=== PATIENT | female | born 1950 | race Caucasian/White ===

== ENCOUNTER 2017-10-21 08:13 | Inpatient (IN) | payer OTHER ==
[2017-10-21] MEDS: SOD CHLORIDE 0.9% 1,000 ML IV ×4 (09:21→16:29)
[2017-10-21 10:15] LABS: ABNORMAL IP MESSAGE 1; HEMATOCRIT 31.9 % (37.0-47.0); HEMOGLOBIN 9.4 g/dl (12.0-16.0); MEAN CORPUSCULAR HEMOGLOBIN 30.2 pg (29.0-33.0); MEAN CORPUSCULAR HGB CONC 29.5 g/dl (32.0-37.0); MEAN CORPUSCULAR VOLUME 102.6 fl (82.0-101.0); PLATELET COUNT 440 10^3/UL (140-415); RED BLOOD COUNT 3.11 10^6/ul (4.20-5.40); RED CELL DISTRIBUTION WIDTH 16.1 % (11.5-14.5)
[2017-10-21 10:27] LABS: POSITIVE DIFF @See below
[2017-10-21 10:28] LABS: ADD MAN DIFF? YES; BLOOD UREA NITROGEN 30 mg/dl (7-20); CALCIUM 9.7 mg/dl (8.4-10.2); CHLORIDE 100 mmol/L (97-110); CREATININE 1.19 mg/dl (0.44-1.00); SODIUM 138 mmol/L (135-144)
[2017-10-21 10:38] LABS: GLUCOSE 867 mg/dl (70-220)
[2017-10-21 10:39] LABS: LACTIC ACID 5.5 mmol/L (0.5-2.0)
[2017-10-21 10:39] LABS: ANION GAP 40 (8-16); CARBON DIOXIDE < 5 mmol/L (21-31)
[2017-10-21] MEDS: INSULIN HUMAN REGULAR 100 UNIT in SOD CHLORIDE 0.9% 99 ML IV (10:51)
[2017-10-21 12:13] LABS: ANISOCYTOSIS 1+ (0-0); BAND NEUTROPHILS % (M) 4 % (0-4); BURR CELLS 1+ (0-0); LYMPHOCYTES #M 3.3 10^3/ul (0.8-2.9); LYMPHOCYTES % (M) 13 % (15-51); MONOCYTE #M 1.8 10^3/ul (0.3-0.9); MONOCYTES % (M) 7 % (0-11); PLATELET ESTIMATE INCREASED; POIKILOCYTOSIS 2+ (0-0); POLYCHROMASIA 1+ (0-0); SEGMENTED NEUTROPHILS (M) % 76 % (39-77); SMUDGE%M 6 % (0-0)
[2017-10-21] MEDS: DEXTROSE 5%-0.45% NACL 1,000 ML IV (12:22)
[2017-10-21] MEDS ORDERED: INSULIN HUMAN REGULAR 100 UNIT in SOD CHLORIDE 0.9% 99 ML IV (12:30)
[2017-10-21] MEDS ORDERED: ONDANSETRON 4 MG INJ IV (12:30)
[2017-10-21 13:26] LABS: ALANINE AMINOTRANSFERASE 69 IU/L (13-69); ALBUMIN 4.3 g/dl (3.3-4.9); ALKALINE PHOSPHATASE 152 IU/L (42-121); ASPARTATE AMINO TRANSFERASE 41 IU/L (15-46); TOTAL PROTEIN 6.7 g/dl (6.1-8.1)
[2017-10-21 13:27] LABS: HEMOGLOBIN A1C 9.9 % (0-5.9)
[2017-10-21] MEDS: ACCU-CHEK XX ×12 (13:30→23:30)
[2017-10-21 13:44] LABS: BLOOD UREA NITROGEN 32 mg/dl (7-20); CALCIUM 9.8 mg/dl (8.4-10.2); CHLORIDE 106 mmol/L (97-110); CREATININE 1.25 mg/dl (0.44-1.00); SODIUM 146 mmol/L (135-144)
[2017-10-21 13:51] LABS: ANION GAP 42 (8-16)
[2017-10-21 13:56] LABS: LACTIC ACID 7.6 mmol/L (0.5-2.0)
[2017-10-21 13:56] LABS: CARBON DIOXIDE < 5 mmol/L (21-31); GLUCOSE 881 mg/dl (70-220); POTASSIUM 6.9 mmol/L (3.5-5.1)
[2017-10-21] MEDS: NA POLYST SULFON 15 GM/60 ML BTL PO (13:59)
[2017-10-21] MEDS: NA BICARBONATE 8.4% 50 ML SYG IV (13:59)
[2017-10-21 15:34] LABS: PHOSPHORUS 8.3 mg/dl (2.5-4.9)
[2017-10-21 15:34] LABS: MAGNESIUM 2.6 mg/dl (1.7-2.5)
[2017-10-21 15:39] LABS: LACTIC ACID 8.1 mmol/L (0.5-2.0)
[2017-10-21 15:51] LABS: GLUCOSE 799 mg/dl (70-220)
[2017-10-21] MEDS: LACTATED RINGER'S 1,000 ML IV (16:21)
[2017-10-21] MEDS: ALBUTEROL 0.5% (NEB) 2.5 MG/0.5 ML AMP INH (16:52)
[2017-10-21 17:04] LABS: ANION GAP 37 (8-16); BLOOD UREA NITROGEN 31 mg/dl (7-20); CALCIUM 8.8 mg/dl (8.4-10.2); CHLORIDE 111 mmol/L (97-110); POTASSIUM 5.5 mmol/L (3.5-5.1); SODIUM 148 mmol/L (135-144)
[2017-10-21 17:12] LABS: CARBON DIOXIDE 6 mmol/L (21-31); GLUCOSE 598 mg/dl (70-220)
[2017-10-21] MEDS: AZITHROMYCIN 500MG/NS (PMX) 250 ML IVPB (17:30)
[2017-10-21 17:54] LABS: ADD UMIC NO; UR ASCORBIC ACID NEGATIVE (NEGATIVE); UR BACTERIA FEW /HPF (NONE SEEN); UR BILIRUBIN (Dip) NEGATIVE (NEGATIVE); UR BLOOD (Dip) NEGATIVE (NEGATIVE); UR CLARITY SLIGHTLY CLOUDY (CLEAR); UR COLOR YELLOW (YELLOW); UR GLUCOSE (Dip) 3+ mg/dL (NEGATIVE); UR KETONES (Dip) 2+ mg/dL (NEGATIVE); UR LEUKOCYTE ESTERASE (Dip) NEGATIVE Leu/ul (NEGATIVE); UR NITRITE (Dip) NEGATIVE (NEGATIVE); UR RBC 0 /HPF (0-5); UR SPECIFIC GRAVITY (Dip) 1.018 (1.003-1.030); UR TOTAL PROTEIN (Dip) NEGATIVE (NEGATIVE); UR UROBILINOGEN (Dip) NEGATIVE (NEGATIVE); UR WBC 1 /HPF (0-5)
[2017-10-21] MEDS: CEFTRIAXONE 1 GM/50 ML (PMX) 50 ML IVPB (18:50)
[2017-10-21] MEDS: DOCUSATE SODIUM 100 MG CAP PO (21:00)
[2017-10-21 21:34] LABS: ANION GAP 29 (8-16); BLOOD UREA NITROGEN 29 mg/dl (7-20); CALCIUM 8.4 mg/dl (8.4-10.2); CHLORIDE 117 mmol/L (97-110); GLUCOSE 330 mg/dl (70-220); POTASSIUM 3.8 mmol/L (3.5-5.1); SODIUM 151 mmol/L (135-144)
[2017-10-21 21:40] LABS: CARBON DIOXIDE 9 mmol/L (21-31)
[2017-10-22] MEDS: ACCU-CHEK XX ×21 (00:30→20:30)
[2017-10-22] MEDS: DEXTROSE 50% 50 ML SYRINGE IV (03:25)
[2017-10-22 04:34] LABS: ANION GAP 17 (8-16); BLOOD UREA NITROGEN 30 mg/dl (7-20); CALCIUM 8.5 mg/dl (8.4-10.2); CARBON DIOXIDE 18 mmol/L (21-31); CHLORIDE 124 mmol/L (97-110); CREATININE 0.99 mg/dl (0.44-1.00); GLUCOSE 119 mg/dl (70-220); POTASSIUM 3.6 mmol/L (3.5-5.1); SODIUM 155 mmol/L (135-144)
[2017-10-22] MEDS: DOCUSATE SODIUM 100 MG CAP PO ×2 (09:00→20:56)
[2017-10-22] MEDS: FAMOTIDINE 20 MG INJ IV ×3 (09:00→21:12)
[2017-10-22 10:21] LABS: ANION GAP 14 (8-16); BLOOD UREA NITROGEN 28 mg/dl (7-20); CALCIUM 8.4 mg/dl (8.4-10.2); CARBON DIOXIDE 21 mmol/L (21-31); CHLORIDE 123 mmol/L (97-110); CREATININE 0.99 mg/dl (0.44-1.00); GLUCOSE 130 mg/dl (70-220); POTASSIUM 3.9 mmol/L (3.5-5.1); SODIUM 154 mmol/L (135-144)
[2017-10-22] MEDS: INSULIN GLARGINE [LANtus] 3 ML PEN SC (12:03)
[2017-10-22] MEDS ORDERED: SOD CHLORIDE 0.45% 1,000 ML IV (14:30)
[2017-10-22 14:46] LABS: ADD MAN DIFF? NO
[2017-10-22 14:53] LABS: ABNORMAL IP MESSAGE 1; HEMATOCRIT 24.6 % (37.0-47.0); HEMOGLOBIN 8.1 g/dl (12.0-16.0); MEAN CORPUSCULAR HEMOGLOBIN 30.8 pg (29.0-33.0); MEAN CORPUSCULAR HGB CONC 32.9 g/dl (32.0-37.0); MEAN CORPUSCULAR VOLUME 93.5 fl (82.0-101.0); MEAN PLATELET VOLUME 9.9 fl (7.4-10.4); PLATELET COUNT 288 10^3/UL (140-415); RED BLOOD COUNT 2.63 10^6/ul (4.20-5.40); RED CELL DISTRIBUTION WIDTH 16.4 % (11.5-14.5)
[2017-10-22 15:02] LABS: POSITIVE DIFF @See below
[2017-10-22 15:02] LABS: WHITE BLOOD COUNT 31.6 10^3/ul (4.8-10.8)
[2017-10-22 15:07] LABS: LACTIC ACID 1.9 mmol/L (0.5-2.0)
[2017-10-22 15:12] LABS: ANION GAP 18 (8-16); BLOOD UREA NITROGEN 27 mg/dl (7-20); CALCIUM 8.7 mg/dl (8.4-10.2); CARBON DIOXIDE 18 mmol/L (21-31); CHLORIDE 122 mmol/L (97-110); CREATININE 0.96 mg/dl (0.44-1.00); GLUCOSE 158 mg/dl (70-220); POTASSIUM 3.8 mmol/L (3.5-5.1); SODIUM 154 mmol/L (135-144)
[2017-10-22] MEDS: DEXTROSE 5%-0.45% NACL 1,000 ML IV (15:29)
[2017-10-22] MEDS: LORAZEPAM 2 MG INJ IV (15:29)
[2017-10-22] MEDS ORDERED: VANCOMYCIN IV PER PHARMACY XX (15:30)
[2017-10-22 15:43] LABS: BAND NEUTROPHILS #M 0.6 10^3/ul (0.0-0.6); BAND NEUTROPHILS % (M) 2 % (0-4); EOSINOPHILS % (M) 1 % (0-7); HYPOCHROMASIA 1+ (0-0); LYMPHOCYTES #M 1.5 10^3/ul (0.8-2.9); LYMPHOCYTES % (M) 5 % (15-51); MONOCYTE #M 0.6 10^3/ul (0.3-0.9); MONOCYTES % (M) 2 % (0-11); PLATELET ESTIMATE NORMAL; SEG NEUT #M 28.6 10^3/ul (1.7-7.5); SEGMENTED NEUTROPHILS (M) % 90 % (39-77)
[2017-10-22] MEDS: PIPER-TAZO 3.375 GM IV (PMX) 50 ML IV (16:26)
[2017-10-22] MEDS: VANCOMYCIN 1 GM 250 ML IVPB (16:26)
[2017-10-22] MEDS: INSULIN ASPART [NOVOLOG] 3 ML PEN SC ×2 (18:00→20:18)
[2017-10-22] MEDS ORDERED: INSULIN ASPART [NOVOLOG] 3 ML PEN SC (18:00)
[2017-10-22 19:06] LABS: ADD UMIC YES; UR ASCORBIC ACID NEGATIVE (NEGATIVE); UR BACTERIA FEW /HPF (NONE SEEN); UR BILIRUBIN (Dip) NEGATIVE (NEGATIVE); UR BLOOD (Dip) NEGATIVE (NEGATIVE); UR CLARITY SLIGHTLY CLOUDY (CLEAR); UR COLOR YELLOW (YELLOW); UR GLUCOSE (Dip) 3+ mg/dL (NEGATIVE); UR KETONES (Dip) 2+ mg/dL (NEGATIVE); UR LEUKOCYTE ESTERASE (Dip) NEGATIVE Leu/ul (NEGATIVE); UR NITRITE (Dip) NEGATIVE (NEGATIVE); UR RBC 0 /HPF (0-5); UR SPECIFIC GRAVITY (Dip) 1.018 (1.003-1.030); UR TOTAL PROTEIN (Dip) 1+ mg/dl (NEGATIVE); UR UROBILINOGEN (Dip) NEGATIVE (NEGATIVE); UR WBC 1 /HPF (0-5)
[2017-10-22 19:25] LABS: ANION GAP 13 (8-16); BLOOD UREA NITROGEN 26 mg/dl (7-20); CALCIUM 8.1 mg/dl (8.4-10.2); CARBON DIOXIDE 19 mmol/L (21-31); CHLORIDE 124 mmol/L (97-110); CREATININE 0.93 mg/dl (0.44-1.00); GLUCOSE 137 mg/dl (70-220); POTASSIUM 3.7 mmol/L (3.5-5.1); SODIUM 152 mmol/L (135-144)
[2017-10-22 19:33] LABS: CREATININE,URINE RANDOM 86.37 mg/dl (20-320)
[2017-10-22 19:33] LABS: SODIUM,URINE RANDOM 49 mmol/L (30-90)
[2017-10-22 20:12] LABS: OSMOLALITY,URINE 596 mOsm/kg (250-1200)
[2017-10-22] MEDS: DEXTROSE 5% 1,000 ML IV (21:13)
[2017-10-22 23:10] LABS: ANION GAP 14 (8-16); BLOOD UREA NITROGEN 25 mg/dl (7-20); CALCIUM 8.3 mg/dl (8.4-10.2); CARBON DIOXIDE 20 mmol/L (21-31); CHLORIDE 123 mmol/L (97-110); CREATININE 1.12 mg/dl (0.44-1.00); GLUCOSE 134 mg/dl (70-220); POTASSIUM 3.8 mmol/L (3.5-5.1); SODIUM 153 mmol/L (135-144)
[2017-10-22] MEDS: PIPER-TAZO 3.375 GM IV (PMX) 50 ML IVPB (23:40)
[2017-10-23] MEDS: INSULIN ASPART [NOVOLOG] 3 ML PEN SC ×6 (01:00→20:35)
[2017-10-23] MEDS: ACCU-CHEK XX ×7 (01:53→20:35)
[2017-10-23] MEDS ORDERED: ACCU-CHEK XX ×2 (02:00)
[2017-10-23] MEDS: PIPER-TAZO 3.375 GM IV (PMX) 50 ML IVPB ×3 (05:40→17:35)
[2017-10-23] MEDS: VANCOMYCIN 500MG/NS (PMX) 100 ML IVPB ×2 (05:41→19:27)
[2017-10-23 06:54] LABS: ADD MAN DIFF? NO
[2017-10-23 07:02] LABS: BASOPHIL # 0.1 10^3/ul (0.0-0.1); BASOPHILS % 0.4 % (0.0-2.0); EOSINOPHILS # 0.1 10^3/ul (0.0-0.5); EOSINOPHILS % 0.4 % (0.0-7.0); HEMATOCRIT 25.2 % (37.0-47.0); HEMOGLOBIN 8.2 g/dl (12.0-16.0); LYMPHOCYTES # 2.5 10^3/ul (0.8-2.9); LYMPHOCYTES % 11.4 % (15.0-51.0); MEAN CORPUSCULAR HEMOGLOBIN 30.5 pg (29.0-33.0); MEAN CORPUSCULAR HGB CONC 32.5 g/dl (32.0-37.0); MEAN CORPUSCULAR VOLUME 93.7 fl (82.0-101.0); MEAN PLATELET VOLUME 10.1 fl (7.4-10.4); MONOCYTE # 1.3 10^3/ul (0.3-0.9); MONOCYTES % 5.9 % (0.0-11.0); NEUTROPHIL # 17.4 10^3/ul (1.6-7.5); NEUTROPHILS % 80.9 % (39.0-77.0); PLATELET COUNT 236 10^3/UL (140-415); RED BLOOD COUNT 2.69 10^6/ul (4.20-5.40); RED CELL DISTRIBUTION WIDTH 16.9 % (11.5-14.5)
[2017-10-23 07:02] LABS: WHITE BLOOD COUNT 21.5 10^3/ul (4.8-10.8)
[2017-10-23 07:42] LABS: ANION GAP 14 (8-16); BLOOD UREA NITROGEN 25 mg/dl (7-20); CALCIUM 7.9 mg/dl (8.4-10.2); CARBON DIOXIDE 18 mmol/L (21-31); CHLORIDE 123 mmol/L (97-110); CREATININE 1.48 mg/dl (0.44-1.00); GLUCOSE 110 mg/dl (70-220); MAGNESIUM 2.1 mg/dl (1.7-2.5); POTASSIUM 3.6 mmol/L (3.5-5.1); SODIUM 151 mmol/L (135-144)
[2017-10-23] MEDS: IODIXANOL LOCM 100 ML BTL (07:46)
[2017-10-23] MEDS: SOD CHLORIDE 0.9% 100 ML (07:46)
[2017-10-23] MEDS: DOCUSATE SODIUM 100 MG CAP PO ×2 (09:00→20:31)
[2017-10-23] MEDS: DEXTROSE 5% 1,000 ML IV ×2 (09:18→20:31)
[2017-10-23] MEDS: INSULIN GLARGINE [LANtus] 3 ML PEN SC (09:18)
[2017-10-23] MEDS: FAMOTIDINE 20 MG INJ IV ×2 (09:18→20:31)
[2017-10-23] MEDS: LACTATED RINGER'S 500 ML IV (11:28)
[2017-10-23] MEDS: SODIUM CHLORIDE 0.45% 500 ML BAG IV* (12:40)
[2017-10-23 13:30] LABS: FREE T4 (FREE THYROXINE) 1.08 ng/dl (0.78-2.44)
[2017-10-23 14:03] LABS: HEPATITIS C VIRAL ANTIBODY NEGATIVE (NEGATIVE)
[2017-10-23] MEDS: LORAZEPAM 2 MG INJ IV (15:03)
[2017-10-23 18:36] LABS: VANCOMYCIN,TROUGH 15.3 ug/ml (10.0-20.0)
[2017-10-23 18:37] LABS: RAPID PLASMA REAGIN NONREACTIVE (NR)
[2017-10-24] MEDS: PIPER-TAZO 3.375 GM IV (PMX) 50 ML IVPB ×4 (00:45→21:28)
[2017-10-24] MEDS: DEXTROSE 50% 50 ML SYRINGE IV (00:45)
[2017-10-24] MEDS: INSULIN ASPART [NOVOLOG] 3 ML PEN SC ×6 (00:46→21:36)
[2017-10-24] MEDS: ACCU-CHEK XX ×7 (00:46→21:51)
[2017-10-24] MEDS: VANCOMYCIN 500MG/NS (PMX) 100 ML IVPB (05:46)
[2017-10-24 07:51] LABS: ADD MAN DIFF? NO
[2017-10-24 07:57] LABS: BASOPHIL # 0.1 10^3/ul (0.0-0.1); BASOPHILS % 0.6 % (0.0-2.0); EOSINOPHILS # 0.1 10^3/ul (0.0-0.5); HEMATOCRIT 26.1 % (37.0-47.0); HEMOGLOBIN 8.2 g/dl (12.0-16.0); LYMPHOCYTES # 2.9 10^3/ul (0.8-2.9); LYMPHOCYTES % 23.2 % (15.0-51.0); MEAN CORPUSCULAR HEMOGLOBIN 29.8 pg (29.0-33.0); MEAN CORPUSCULAR HGB CONC 31.4 g/dl (32.0-37.0); MEAN CORPUSCULAR VOLUME 94.9 fl (82.0-101.0); MEAN PLATELET VOLUME 10.2 fl (7.4-10.4); MONOCYTE # 0.7 10^3/ul (0.3-0.9); MONOCYTES % 5.9 % (0.0-11.0); NEUTROPHIL # 8.7 10^3/ul (1.6-7.5); NEUTROPHILS % 68.8 % (39.0-77.0); PLATELET COUNT 196 10^3/UL (140-415); RED BLOOD COUNT 2.75 10^6/ul (4.20-5.40); RED CELL DISTRIBUTION WIDTH 16.9 % (11.5-14.5)
[2017-10-24 07:57] LABS: WHITE BLOOD COUNT 12.6 10^3/ul (4.8-10.8)
[2017-10-24] MEDS: INSULIN GLARGINE [LANtus] 3 ML PEN SC (08:00)
[2017-10-24] MEDS: DOCUSATE SODIUM 100 MG CAP PO ×2 (08:25→21:00)
[2017-10-24] MEDS: FAMOTIDINE 20 MG INJ IV ×2 (08:25→21:27)
[2017-10-24] MEDS: AMLODIPINE 10 MG TAB PO (08:26)
[2017-10-24 08:29] LABS: ANION GAP 13 (8-16); BLOOD UREA NITROGEN 24 mg/dl (7-20); CALCIUM 7.8 mg/dl (8.4-10.2); CARBON DIOXIDE 19 mmol/L (21-31); CHLORIDE 119 mmol/L (97-110); CREATININE 2.07 mg/dl (0.44-1.00); GLUCOSE 69 mg/dl (70-220); POTASSIUM 3.2 mmol/L (3.5-5.1); SODIUM 148 mmol/L (135-144)
[2017-10-24] MEDS ORDERED: PIPER-TAZO 3.375 GM IV (PMX) 50 ML (12:41)
[2017-10-24] MEDS: SOD CHLORIDE 0.45% 1,000 ML IV ×2 (12:43→20:30)
[2017-10-24] MEDS: NA PHOSPHATE/BIPHOS 133 ML ENEMA PR (13:00)
[2017-10-24] MEDS ORDERED: POTASSIUM CHLORIDE 50 ML IVPB (13:00)
[2017-10-24] MEDS: POTASSIUM CHLORIDE 50 ML IVPB ×2 (13:30→14:30)
[2017-10-24] MEDS: hydrALAzine 20 MG INJ IV (16:02)
[2017-10-24] MEDS: HALOPERIDOL 5 MG INJ IV ×2 (17:22→18:50)
[2017-10-24] MEDS ORDERED: HALOPERIDOL 5 MG INJ IV (18:30)
[2017-10-25] MEDS: ACCU-CHEK XX ×7 (01:24→20:38)
[2017-10-25] MEDS: INSULIN ASPART [NOVOLOG] 3 ML PEN SC ×6 (01:27→20:35)
[2017-10-25] MEDS: SOD CHLORIDE 0.45% 1,000 ML IV ×4 (04:30→23:20)
[2017-10-25] MEDS: PIPER-TAZO 3.375 GM IV (PMX) 50 ML IVPB ×3 (05:43→21:48)
[2017-10-25 07:27] LABS: ADD MAN DIFF? NO
[2017-10-25 07:28] LABS: BASOPHIL # 0.1 10^3/ul (0.0-0.1); BASOPHILS % 0.8 % (0.0-2.0); EOSINOPHILS # 0.1 10^3/ul (0.0-0.5); EOSINOPHILS % 1.1 % (0.0-7.0); HEMATOCRIT 24.5 % (37.0-47.0); HEMOGLOBIN 8.2 g/dl (12.0-16.0); LYMPHOCYTES # 1.8 10^3/ul (0.8-2.9); LYMPHOCYTES % 18.1 % (15.0-51.0); MEAN CORPUSCULAR HEMOGLOBIN 31.1 pg (29.0-33.0); MEAN CORPUSCULAR HGB CONC 33.5 g/dl (32.0-37.0); MEAN CORPUSCULAR VOLUME 92.8 fl (82.0-101.0); MEAN PLATELET VOLUME 10.4 fl (7.4-10.4); MONOCYTE # 0.6 10^3/ul (0.3-0.9); MONOCYTES % 5.7 % (0.0-11.0); NEUTROPHIL # 7.1 10^3/ul (1.6-7.5); NEUTROPHILS % 73.7 % (39.0-77.0); PLATELET COUNT 171 10^3/UL (140-415); RED BLOOD COUNT 2.64 10^6/ul (4.20-5.40); RED CELL DISTRIBUTION WIDTH 16.2 % (11.5-14.5)
[2017-10-25 07:28] LABS: WHITE BLOOD COUNT 9.7 10^3/ul (4.8-10.8)
[2017-10-25 08:03] LABS: ANION GAP 14 (8-16); BLOOD UREA NITROGEN 20 mg/dl (7-20); CARBON DIOXIDE 16 mmol/L (21-31); CHLORIDE 120 mmol/L (97-110); CREATININE 1.72 mg/dl (0.44-1.00); GLUCOSE 137 mg/dl (70-220); POTASSIUM 3.4 mmol/L (3.5-5.1); SODIUM 147 mmol/L (135-144)
[2017-10-25] MEDS: INSULIN GLARGINE [LANtus] 3 ML PEN SC (08:25)
[2017-10-25] MEDS: DOCUSATE SODIUM 100 MG CAP PO ×2 (08:31→20:33)
[2017-10-25] MEDS: VANCOMYCIN 500MG/NS (PMX) 100 ML IVPB (08:32)
[2017-10-25] MEDS: AMLODIPINE 10 MG TAB PO (08:32)
[2017-10-25] MEDS: INFLUENZA VIRUS VACCINE 0.5 ML (DISPENSING) IM* (08:33)
[2017-10-25] MEDS: FAMOTIDINE 20 MG INJ IV ×2 (08:34→20:32)
[2017-10-25] MEDS ORDERED: POTASSIUM CHLORIDE (SR) 20 MEQ TAB PO (09:21)
[2017-10-25] MEDS: POTASSIUM CHLORIDE 50 ML IVPB ×4 (10:32→13:00)
[2017-10-25] MEDS: HALOPERIDOL 5 MG INJ IV ×2 (13:17→23:18)
[2017-10-25 14:56] LABS: CREATININE, RANDOM URINE 99 mg/dL (20-320); MICROALBUMIN 7.6 mg/dL; MICROALBUMIN/CREATININE RATIO 77 (<30)
[2017-10-26] MEDS: INSULIN ASPART [NOVOLOG] 3 ML PEN SC ×6 (00:41→20:35)
[2017-10-26] MEDS: ACCU-CHEK XX ×7 (00:41→20:35)
[2017-10-26] MEDS: SOD CHLORIDE 0.45% 1,000 ML IV ×4 (03:56→20:21)
[2017-10-26] MEDS: HALOPERIDOL 5 MG INJ IV (05:39)
[2017-10-26] MEDS: hydrALAzine 20 MG INJ IV (05:40)
[2017-10-26] MEDS: PIPER-TAZO 3.375 GM IV (PMX) 50 ML IVPB ×3 (05:40→21:30)
[2017-10-26 07:39] LABS: ADD MAN DIFF? NO
[2017-10-26 07:46] LABS: BASOPHIL # 0.1 10^3/ul (0.0-0.1); BASOPHILS % 0.8 % (0.0-2.0); EOSINOPHILS # 0.1 10^3/ul (0.0-0.5); EOSINOPHILS % 0.8 % (0.0-7.0); HEMATOCRIT 24.7 % (37.0-47.0); HEMOGLOBIN 8.2 g/dl (12.0-16.0); LYMPHOCYTES # 2.3 10^3/ul (0.8-2.9); LYMPHOCYTES % 20.5 % (15.0-51.0); MEAN CORPUSCULAR HEMOGLOBIN 29.7 pg (29.0-33.0); MEAN CORPUSCULAR HGB CONC 33.2 g/dl (32.0-37.0); MEAN CORPUSCULAR VOLUME 89.5 fl (82.0-101.0); MEAN PLATELET VOLUME 10.7 fl (7.4-10.4); MONOCYTE # 0.8 10^3/ul (0.3-0.9); MONOCYTES % 7.4 % (0.0-11.0); NEUTROPHIL # 7.7 10^3/ul (1.6-7.5); PLATELET COUNT 172 10^3/UL (140-415); RED BLOOD COUNT 2.76 10^6/ul (4.20-5.40); RED CELL DISTRIBUTION WIDTH 15.9 % (11.5-14.5)
[2017-10-26] MEDS: INSULIN GLARGINE [LANtus] 3 ML PEN SC (08:11)
[2017-10-26 08:26] LABS: ANION GAP 15 (8-16); BLOOD UREA NITROGEN 16 mg/dl (7-20); CALCIUM 8.8 mg/dl (8.4-10.2); CARBON DIOXIDE 16 mmol/L (21-31); CHLORIDE 116 mmol/L (97-110); GLUCOSE 136 mg/dl (70-220); MAGNESIUM 1.6 mg/dl (1.7-2.5); PHOSPHORUS 2.3 mg/dl (2.5-4.9); POTASSIUM 3.5 mmol/L (3.5-5.1); SODIUM 143 mmol/L (135-144)
[2017-10-26] MEDS: FAMOTIDINE 20 MG INJ IV ×2 (09:00→20:17)
[2017-10-26] MEDS: AMLODIPINE 10 MG TAB PO (09:20)
[2017-10-26] MEDS: DOCUSATE SODIUM 100 MG CAP PO ×2 (09:20→20:17)
[2017-10-26] MEDS: VANCOMYCIN 500MG/NS (PMX) 100 ML IVPB (09:25)
[2017-10-26] MEDS: MAGNESIUM SULFATE 2 GM/50 ML 50 ML IVPB (11:13)
[2017-10-26] MEDS: POTASSIUM PHOSPHATE 20 MEQ in SOD CHLORIDE 0.9% 250 ML IVPB (14:50)
[2017-10-26] MEDS: DEXTROSE 50% 50 ML SYRINGE IV (17:26)
[2017-10-27] MEDS: INSULIN ASPART [NOVOLOG] 3 ML PEN SC ×6 (01:48→20:09)
[2017-10-27] MEDS: ACCU-CHEK XX ×7 (01:48→20:10)
[2017-10-27] MEDS: PIPER-TAZO 3.375 GM IV (PMX) 50 ML IVPB ×3 (05:19→21:20)
[2017-10-27] MEDS: FAMOTIDINE 20 MG INJ IV ×2 (09:18→20:02)
[2017-10-27] MEDS: AMLODIPINE 10 MG TAB PO (09:19)
[2017-10-27] MEDS: DOCUSATE SODIUM 100 MG CAP PO ×2 (09:19→20:01)
[2017-10-27] MEDS: INSULIN GLARGINE [LANtus] 3 ML PEN SC (09:22)
[2017-10-28] MEDS: INSULIN ASPART [NOVOLOG] 3 ML PEN SC ×7 (01:05→22:18)
[2017-10-28] MEDS: ACCU-CHEK XX ×7 (01:05→21:00)
[2017-10-28] MEDS: PIPER-TAZO 3.375 GM IV (PMX) 50 ML IVPB (05:26)
[2017-10-28 07:43] LABS: ADD MAN DIFF? NO
[2017-10-28 07:46] LABS: WHITE BLOOD COUNT 8.8 10^3/ul (4.8-10.8)
[2017-10-28 07:46] LABS: BASOPHIL # 0.1 10^3/ul (0.0-0.1); BASOPHILS % 0.9 % (0.0-2.0); EOSINOPHILS # 0.2 10^3/ul (0.0-0.5); EOSINOPHILS % 1.8 % (0.0-7.0); HEMOGLOBIN 8.7 g/dl (12.0-16.0); LYMPHOCYTES # 3.1 10^3/ul (0.8-2.9); LYMPHOCYTES % 34.8 % (15.0-51.0); MEAN CORPUSCULAR HGB CONC 33.5 g/dl (32.0-37.0); MEAN CORPUSCULAR VOLUME 92.5 fl (82.0-101.0); MEAN PLATELET VOLUME 11.1 fl (7.4-10.4); MONOCYTE # 0.8 10^3/ul (0.3-0.9); MONOCYTES % 8.5 % (0.0-11.0); NEUTROPHIL # 4.7 10^3/ul (1.6-7.5); NEUTROPHILS % 53.4 % (39.0-77.0); PLATELET COUNT 216 10^3/UL (140-415); RED BLOOD COUNT 2.81 10^6/ul (4.20-5.40); RED CELL DISTRIBUTION WIDTH 15.8 % (11.5-14.5)
[2017-10-28] MEDS: DOCUSATE SODIUM 100 MG CAP PO ×2 (08:12→21:00)
[2017-10-28] MEDS: AMLODIPINE 10 MG TAB PO (08:13)
[2017-10-28] MEDS: FAMOTIDINE 20 MG INJ IV ×2 (08:13→22:06)
[2017-10-28 08:16] LABS: ANION GAP 11 (8-16); BLOOD UREA NITROGEN 13 mg/dl (7-20); CALCIUM 8.9 mg/dl (8.4-10.2); CARBON DIOXIDE 24 mmol/L (21-31); CHLORIDE 111 mmol/L (97-110); CREATININE 1.12 mg/dl (0.44-1.00); GLUCOSE 159 mg/dl (70-220); MAGNESIUM 1.7 mg/dl (1.7-2.5); PHOSPHORUS 3.4 mg/dl (2.5-4.9); POTASSIUM 3.6 mmol/L (3.5-5.1); SODIUM 142 mmol/L (135-144)
[2017-10-28] MEDS: INSULIN GLARGINE [LANtus] 3 ML PEN SC (08:24)
[2017-10-28] MEDS: HALOPERIDOL 5 MG INJ IV (12:21)
[2017-10-28] MEDS: PIPER-TAZO 3.375 GM IV (PMX) 100 ML IVPB ×2 (15:04→22:16)
[2017-10-28] MEDS: QUETIAPINE 25 MG TAB PO (22:04)
[2017-10-29] MEDS: INSULIN ASPART [NOVOLOG] 3 ML PEN SC ×6 (00:30→21:49)
[2017-10-29] MEDS: ACCU-CHEK XX ×7 (00:32→21:20)
[2017-10-29] MEDS: PIPER-TAZO 3.375 GM IV (PMX) 100 ML IVPB ×3 (05:16→21:21)
[2017-10-29] MEDS: INSULIN GLARGINE [LANtus] 3 ML PEN SC (07:56)
[2017-10-29] MEDS: DOCUSATE SODIUM 100 MG CAP PO ×2 (08:38→21:00)
[2017-10-29] MEDS: FAMOTIDINE 20 MG INJ IV ×2 (08:38→21:20)
[2017-10-29] MEDS: AMLODIPINE 10 MG TAB PO (08:38)
[2017-10-29] MEDS: QUETIAPINE 25 MG TAB PO (21:20)
[2017-10-30] MEDS: INSULIN ASPART [NOVOLOG] 3 ML PEN SC ×6 (01:09→23:14)
[2017-10-30] MEDS: ACCU-CHEK XX ×7 (01:09→21:00)
[2017-10-30] MEDS: PIPER-TAZO 3.375 GM IV (PMX) 100 ML IVPB ×3 (06:15→22:08)
[2017-10-30 07:21] LABS: ADD MAN DIFF? NO
[2017-10-30 07:24] LABS: BASOPHIL # 0.1 10^3/ul (0.0-0.1); BASOPHILS % 0.7 % (0.0-2.0); EOSINOPHILS # 0.2 10^3/ul (0.0-0.5); EOSINOPHILS % 1.5 % (0.0-7.0); HEMATOCRIT 30.2 % (37.0-47.0); HEMOGLOBIN 9.9 g/dl (12.0-16.0); LYMPHOCYTES # 4.6 10^3/ul (0.8-2.9); LYMPHOCYTES % 40.8 % (15.0-51.0); MEAN CORPUSCULAR HEMOGLOBIN 30.3 pg (29.0-33.0); MEAN CORPUSCULAR HGB CONC 32.8 g/dl (32.0-37.0); MEAN CORPUSCULAR VOLUME 92.4 fl (82.0-101.0); MEAN PLATELET VOLUME 10.8 fl (7.4-10.4); MONOCYTES % 8.8 % (0.0-11.0); NEUTROPHIL # 5.3 10^3/ul (1.6-7.5); NEUTROPHILS % 47.7 % (39.0-77.0); PLATELET COUNT 353 10^3/UL (140-415); RED BLOOD COUNT 3.27 10^6/ul (4.20-5.40); RED CELL DISTRIBUTION WIDTH 16.5 % (11.5-14.5)
[2017-10-30 07:24] LABS: WHITE BLOOD COUNT 11.1 10^3/ul (4.8-10.8)
[2017-10-30 07:44] LABS: ALBUMIN 4.2 g/dl (3.3-4.9); ANION GAP 14 (8-16); BLOOD UREA NITROGEN 22 mg/dl (7-20); CALCIUM 9.4 mg/dl (8.4-10.2); CARBON DIOXIDE 28 mmol/L (21-31); CHLORIDE 107 mmol/L (97-110); CREATININE 1.22 mg/dl (0.44-1.00); GLUCOSE 106 mg/dl (70-220); MAGNESIUM 1.7 mg/dl (1.7-2.5); PHOSPHORUS 3.4 mg/dl (2.5-4.9); POTASSIUM 3.8 mmol/L (3.5-5.1); SODIUM 145 mmol/L (135-144)
[2017-10-30] MEDS ORDERED: INSULIN GLARGINE [LANtus] 3 ML PEN SC (08:00)
[2017-10-30] MEDS: INSULIN GLARGINE [LANtus] 3 ML PEN SC (08:01)
[2017-10-30] MEDS: FAMOTIDINE 20 MG INJ IV ×2 (08:35→22:08)
[2017-10-30] MEDS: DOCUSATE SODIUM 100 MG CAP PO ×2 (08:35→22:08)
[2017-10-30] MEDS: AMLODIPINE 10 MG TAB PO (08:35)
[2017-10-30] MEDS: QUETIAPINE 25 MG TAB PO (22:08)
[2017-10-31] MEDS: ACCU-CHEK XX ×3 (01:00→02:24)
[2017-10-31 06:14] LABS: ADD MAN DIFF? NO
[2017-10-31 06:16] LABS: BASOPHIL # 0.1 10^3/ul (0.0-0.1); EOSINOPHILS # 0.1 10^3/ul (0.0-0.5); EOSINOPHILS % 1.6 % (0.0-7.0); HEMATOCRIT 25.5 % (37.0-47.0); HEMOGLOBIN 8.3 g/dl (12.0-16.0); LYMPHOCYTES # 3.2 10^3/ul (0.8-2.9); LYMPHOCYTES % 35.5 % (15.0-51.0); MEAN CORPUSCULAR HEMOGLOBIN 30.5 pg (29.0-33.0); MEAN CORPUSCULAR HGB CONC 32.5 g/dl (32.0-37.0); MEAN CORPUSCULAR VOLUME 93.8 fl (82.0-101.0); MEAN PLATELET VOLUME 10.8 fl (7.4-10.4); MONOCYTE # 1.1 10^3/ul (0.3-0.9); NEUTROPHIL # 4.4 10^3/ul (1.6-7.5); NEUTROPHILS % 49.5 % (39.0-77.0); PLATELET COUNT 320 10^3/UL (140-415); RED BLOOD COUNT 2.72 10^6/ul (4.20-5.40); RED CELL DISTRIBUTION WIDTH 16.5 % (11.5-14.5)
[2017-10-31 06:53] LABS: ALBUMIN 3.3 g/dl (3.3-4.9); ANION GAP 13 (8-16); BLOOD UREA NITROGEN 23 mg/dl (7-20); CALCIUM 9.1 mg/dl (8.4-10.2); CARBON DIOXIDE 26 mmol/L (21-31); CHLORIDE 106 mmol/L (97-110); CREATININE 1.26 mg/dl (0.44-1.00); GLUCOSE 267 mg/dl (70-220); MAGNESIUM 1.7 mg/dl (1.7-2.5); PHOSPHORUS 3.3 mg/dl (2.5-4.9); POTASSIUM 4.2 mmol/L (3.5-5.1); SODIUM 141 mmol/L (135-144)
[2017-10-31] MEDS: DOCUSATE SODIUM 100 MG CAP PO ×2 (08:38→20:13)
[2017-10-31] MEDS: ESCITALOPRAM 10 MG TAB PO (08:39)
[2017-10-31] MEDS: AMLODIPINE 10 MG TAB PO (08:39)
[2017-10-31] MEDS: FAMOTIDINE 20 MG INJ IV ×2 (08:39→20:13)
[2017-10-31] MEDS: INSULIN ASPART [NOVOLOG] 3 ML PEN SC ×4 (08:40→20:14)
[2017-10-31] MEDS: INSULIN GLARGINE [LANtus] 3 ML PEN SC (08:50)
[2017-10-31] MEDS: QUETIAPINE 25 MG TAB PO (20:13)
[2017-11-01] MEDS: ACCU-CHEK XX (02:46)
[2017-11-01] MEDS: INSULIN ASPART [NOVOLOG] 3 ML PEN SC ×7 (02:52→21:06)
[2017-11-01 06:12] LABS: WHITE BLOOD COUNT 10.4 10^3/ul (4.8-10.8)
[2017-11-01 06:12] LABS: ADD MAN DIFF? NO; BASOPHIL # 0.1 10^3/ul (0.0-0.1); BASOPHILS % 0.6 % (0.0-2.0); EOSINOPHILS # 0.2 10^3/ul (0.0-0.5); EOSINOPHILS % 1.6 % (0.0-7.0); HEMATOCRIT 25.2 % (37.0-47.0); HEMOGLOBIN 8.4 g/dl (12.0-16.0); LYMPHOCYTES # 4.7 10^3/ul (0.8-2.9); LYMPHOCYTES % 45.3 % (15.0-51.0); MEAN CORPUSCULAR HEMOGLOBIN 30.9 pg (29.0-33.0); MEAN CORPUSCULAR HGB CONC 33.3 g/dl (32.0-37.0); MEAN CORPUSCULAR VOLUME 92.6 fl (82.0-101.0); MEAN PLATELET VOLUME 10.7 fl (7.4-10.4); MONOCYTE # 1.1 10^3/ul (0.3-0.9); MONOCYTES % 10.3 % (0.0-11.0); NEUTROPHIL # 4.3 10^3/ul (1.6-7.5); NEUTROPHILS % 41.7 % (39.0-77.0); PLATELET COUNT 363 10^3/UL (140-415); RED BLOOD COUNT 2.72 10^6/ul (4.20-5.40); RED CELL DISTRIBUTION WIDTH 16.2 % (11.5-14.5)
[2017-11-01 06:58] LABS: ALBUMIN 3.3 g/dl (3.3-4.9); ANION GAP 9 (8-16); BLOOD UREA NITROGEN 23 mg/dl (7-20); CALCIUM 9.2 mg/dl (8.4-10.2); CARBON DIOXIDE 30 mmol/L (21-31); CHLORIDE 106 mmol/L (97-110); CREATININE 1.07 mg/dl (0.44-1.00); GLUCOSE 93 mg/dl (70-220); MAGNESIUM 1.8 mg/dl (1.7-2.5); PHOSPHORUS 2.6 mg/dl (2.5-4.9); POTASSIUM 3.8 mmol/L (3.5-5.1); SODIUM 141 mmol/L (135-144)
[2017-11-01] MEDS: DOCUSATE SODIUM 100 MG CAP PO ×2 (08:57→21:05)
[2017-11-01] MEDS: AMLODIPINE 10 MG TAB PO (08:58)
[2017-11-01] MEDS: ESCITALOPRAM 10 MG TAB PO (08:58)
[2017-11-01] MEDS: FAMOTIDINE 20 MG INJ IV ×2 (09:00→21:04)
[2017-11-01] MEDS ORDERED: ALBUTEROL/IPRATROPIUM (NEB) 3 ML AMP HHN (13:00)
[2017-11-01 13:28] LABS: HEMOGLOBIN A1C 8.8 % (0-5.9)
[2017-11-01 13:35] LABS: GLUCOSE 334 mg/dl (70-220)
[2017-11-01] MEDS: ALBUTEROL/IPRATROPIUM (NEB) 3 ML AMP HHN ×2 (14:22→19:58)
[2017-11-01] MEDS: DIVALPROEX (EC) 250 MG TAB PO (21:05)
[2017-11-01] MEDS: INSULIN GLARGINE [LANtus] 3 ML PEN SC (21:06)
[2017-11-02] MEDS: ACCU-CHEK XX (02:43)
[2017-11-02] MEDS: INSULIN ASPART [NOVOLOG] 3 ML PEN SC ×8 (02:56→20:48)
[2017-11-02 06:55] LABS: ADD MAN DIFF? NO
[2017-11-02 06:58] LABS: WHITE BLOOD COUNT 12.9 10^3/ul (4.8-10.8)
[2017-11-02 06:58] LABS: BASOPHIL # 0.1 10^3/ul (0.0-0.1); BASOPHILS % 0.8 % (0.0-2.0); EOSINOPHILS # 0.1 10^3/ul (0.0-0.5); EOSINOPHILS % 0.9 % (0.0-7.0); HEMATOCRIT 25.1 % (37.0-47.0); HEMOGLOBIN 8.3 g/dl (12.0-16.0); LYMPHOCYTES # 4.8 10^3/ul (0.8-2.9); LYMPHOCYTES % 37.4 % (15.0-51.0); MEAN CORPUSCULAR HEMOGLOBIN 30.6 pg (29.0-33.0); MEAN CORPUSCULAR HGB CONC 33.1 g/dl (32.0-37.0); MEAN CORPUSCULAR VOLUME 92.6 fl (82.0-101.0); MEAN PLATELET VOLUME 10.9 fl (7.4-10.4); MONOCYTE # 1.1 10^3/ul (0.3-0.9); MONOCYTES % 8.4 % (0.0-11.0); NEUTROPHIL # 6.7 10^3/ul (1.6-7.5); NEUTROPHILS % 52.1 % (39.0-77.0); PLATELET COUNT 372 10^3/UL (140-415); RED BLOOD COUNT 2.71 10^6/ul (4.20-5.40); RED CELL DISTRIBUTION WIDTH 16.2 % (11.5-14.5)
[2017-11-02 07:19] LABS: ANION GAP 12 (8-16); BLOOD UREA NITROGEN 32 mg/dl (7-20); CALCIUM 9.4 mg/dl (8.4-10.2); CARBON DIOXIDE 28 mmol/L (21-31); CHLORIDE 101 mmol/L (97-110); CREATININE 1.08 mg/dl (0.44-1.00); GLUCOSE 249 mg/dl (70-220); MAGNESIUM 1.8 mg/dl (1.7-2.5); POTASSIUM 3.8 mmol/L (3.5-5.1); SODIUM 137 mmol/L (135-144)
[2017-11-02] MEDS: ALBUTEROL/IPRATROPIUM (NEB) 3 ML AMP HHN ×3 (07:32→20:01)
[2017-11-02] MEDS: AMLODIPINE 10 MG TAB PO (10:08)
[2017-11-02] MEDS: ESCITALOPRAM 10 MG TAB PO (10:09)
[2017-11-02] MEDS: NEUTRA-PHOS 250 MG PACKET PO (10:09)
[2017-11-02] MEDS: FAMOTIDINE 20 MG INJ IV ×2 (10:10→20:52)
[2017-11-02] MEDS: DOCUSATE SODIUM 100 MG CAP PO ×2 (10:10→20:52)
[2017-11-02] MEDS: INSULIN GLARGINE [LANtus] 3 ML PEN SC (20:47)
[2017-11-02] MEDS: DIVALPROEX (EC) 250 MG TAB PO (20:52)
[2017-11-03] MEDS: ACCU-CHEK XX (02:30)
[2017-11-03] MEDS: INSULIN ASPART [NOVOLOG] 3 ML PEN SC ×9 (02:34→20:20)
[2017-11-03 06:14] LABS: ADD MAN DIFF? NO
[2017-11-03 06:25] LABS: WHITE BLOOD COUNT 13.7 10^3/ul (4.8-10.8)
[2017-11-03 06:25] LABS: BASOPHIL # 0.1 10^3/ul (0.0-0.1); BASOPHILS % 0.6 % (0.0-2.0); EOSINOPHILS # 0.1 10^3/ul (0.0-0.5); HEMATOCRIT 25.2 % (37.0-47.0); HEMOGLOBIN 8.3 g/dl (12.0-16.0); LYMPHOCYTES # 4.7 10^3/ul (0.8-2.9); LYMPHOCYTES % 33.9 % (15.0-51.0); MEAN CORPUSCULAR HEMOGLOBIN 30.9 pg (29.0-33.0); MEAN CORPUSCULAR HGB CONC 32.9 g/dl (32.0-37.0); MEAN CORPUSCULAR VOLUME 93.7 fl (82.0-101.0); MEAN PLATELET VOLUME 10.6 fl (7.4-10.4); MONOCYTE # 1.1 10^3/ul (0.3-0.9); MONOCYTES % 8.3 % (0.0-11.0); NEUTROPHIL # 7.6 10^3/ul (1.6-7.5); NEUTROPHILS % 55.3 % (39.0-77.0); PLATELET COUNT 380 10^3/UL (140-415); RED BLOOD COUNT 2.69 10^6/ul (4.20-5.40); RED CELL DISTRIBUTION WIDTH 16.3 % (11.5-14.5)
[2017-11-03 06:30] LABS: POSITIVE DIFF @See below
[2017-11-03 06:49] LABS: ANION GAP 13 (8-16); BLOOD UREA NITROGEN 33 mg/dl (7-20); CALCIUM 9.7 mg/dl (8.4-10.2); CARBON DIOXIDE 28 mmol/L (21-31); CHLORIDE 103 mmol/L (97-110); CREATININE 0.96 mg/dl (0.44-1.00); GLUCOSE 142 mg/dl (70-220); MAGNESIUM 1.9 mg/dl (1.7-2.5); PHOSPHORUS 2.4 mg/dl (2.5-4.9); POTASSIUM 3.8 mmol/L (3.5-5.1); SODIUM 140 mmol/L (135-144)
[2017-11-03] MEDS: ALBUTEROL/IPRATROPIUM (NEB) 3 ML AMP HHN ×3 (08:00→19:32)
[2017-11-03] MEDS: DOCUSATE SODIUM 100 MG CAP PO ×2 (08:09→20:18)
[2017-11-03] MEDS: ESCITALOPRAM 10 MG TAB PO (08:10)
[2017-11-03] MEDS: FAMOTIDINE 20 MG INJ IV ×2 (08:10→20:18)
[2017-11-03] MEDS: AMLODIPINE 10 MG TAB PO (08:13)
[2017-11-03] MEDS: NEUTRA-PHOS 250 MG PACKET PO (10:01)
[2017-11-03] MEDS ORDERED: HYDROCODONE/APAP (5/325) TAB PO (16:00)
[2017-11-03] MEDS ORDERED: INSULIN ASPART [NOVOLOG] 3 ML PEN SC (18:00)
[2017-11-03] MEDS: DIVALPROEX (EC) 250 MG TAB PO (20:18)
[2017-11-03] MEDS: INSULIN GLARGINE [LANtus] 3 ML PEN SC (20:25)
[2017-11-03] MEDS ORDERED: INSULIN GLARGINE [LANtus] 3 ML PEN SC (21:00)
[2017-11-04] MEDS: ACCU-CHEK XX (02:33)
[2017-11-04 05:45] LABS: ABNORMAL IP MESSAGE 1; HEMATOCRIT 26.2 % (37.0-47.0); HEMOGLOBIN 8.6 g/dl (12.0-16.0); MEAN CORPUSCULAR HGB CONC 32.8 g/dl (32.0-37.0); MEAN CORPUSCULAR VOLUME 94.6 fl (82.0-101.0); MEAN PLATELET VOLUME 10.3 fl (7.4-10.4); PLATELET COUNT 395 10^3/UL (140-415); RED BLOOD COUNT 2.77 10^6/ul (4.20-5.40); RED CELL DISTRIBUTION WIDTH 16.5 % (11.5-14.5)
[2017-11-04 06:20] LABS: ANION GAP 12 (8-16); BLOOD UREA NITROGEN 22 mg/dl (7-20); CALCIUM 9.5 mg/dl (8.4-10.2); CARBON DIOXIDE 30 mmol/L (21-31); CHLORIDE 103 mmol/L (97-110); CREATININE 0.91 mg/dl (0.44-1.00); GLUCOSE 82 mg/dl (70-220); MAGNESIUM 1.9 mg/dl (1.7-2.5); PHOSPHORUS 3.2 mg/dl (2.5-4.9); POTASSIUM 4.1 mmol/L (3.5-5.1); SODIUM 141 mmol/L (135-144)
[2017-11-04 06:33] LABS: ADD MAN DIFF? YES; POSITIVE DIFF @See below
[2017-11-04] MEDS: INSULIN ASPART [NOVOLOG] 3 ML PEN SC ×8 (08:15→22:43)
[2017-11-04] MEDS: ALBUTEROL/IPRATROPIUM (NEB) 3 ML AMP HHN ×3 (08:34→19:18)
[2017-11-04] MEDS: DIVALPROEX (EC) 250 MG TAB PO ×2 (09:10→20:27)
[2017-11-04] MEDS: DOCUSATE SODIUM 100 MG CAP PO ×2 (09:10→20:27)
[2017-11-04] MEDS: AMLODIPINE 10 MG TAB PO (09:11)
[2017-11-04] MEDS: ESCITALOPRAM 10 MG TAB PO (09:14)
[2017-11-04] MEDS: FAMOTIDINE 20 MG INJ IV (09:14)
[2017-11-04 09:40] LABS: ANISOCYTOSIS 1+ (0-0); BAND NEUTROPHILS #M 0.1 10^3/ul (0.0-0.6); BAND NEUTROPHILS % (M) 1 % (0-4); BASOPHIL #M 0.1 10^3/ul (0.0-0.0); BASOPHILS % (M) 1 % (0-2); EOSINOPHILS % (M) 1 % (0-7); LYMPHOCYTES #M 4.9 10^3/ul (0.8-2.9); LYMPHOCYTES % (M) 33 % (15-51); MICROCYTOSIS 1+ (0-0); MONOCYTE #M 0.4 10^3/ul (0.3-0.9); MONOCYTES % (M) 3 % (0-11); PLATELET ESTIMATE NORMAL; REACTIVE LYMPHOCYTES #M 0.3 10^3/ul (0.0-0.0); REACTIVE LYMPHOCYTES% (M) 2 % (0-0); SEG NEUT #M 8.9 10^3/ul (1.7-7.5); SEGMENTED NEUTROPHILS (M) % 59 % (39-77); SMUDGE%M 3 % (0-0)
[2017-11-04 15:06] LABS: C-PEPTIDE <0.10 ng/mL (0.80-3.85)
[2017-11-04 21:32] LABS: GLUCOSE 93 mg/dl (70-220)
[2017-11-04] MEDS: INSULIN GLARGINE [LANtus] 3 ML PEN SC (22:41)
[2017-11-05 01:22] LABS: ADD UMIC YES; UR ASCORBIC ACID 40 mg/dL (NEGATIVE); UR BILIRUBIN (Dip) NEGATIVE (NEGATIVE); UR BLOOD (Dip) NEGATIVE (NEGATIVE); UR CLARITY SLIGHTLY CLOUDY (CLEAR); UR COLOR YELLOW (YELLOW); UR GLUCOSE (Dip) 3+ mg/dL (NEGATIVE); UR KETONES (Dip) TRACE mg/dL (NEGATIVE); UR LEUKOCYTE ESTERASE (Dip) 2+ Leu/ul (NEGATIVE); UR NITRITE (Dip) NEGATIVE (NEGATIVE); UR RBC 2 /HPF (0-5); UR SPECIFIC GRAVITY (Dip) 1.014 (1.003-1.030); UR SQUAMOUS EPITHELIAL CELL FEW /HPF (FEW); UR TOTAL PROTEIN (Dip) 1+ mg/dl (NEGATIVE); UR UROBILINOGEN (Dip) NEGATIVE (NEGATIVE); UR WBC 39 /HPF (0-5)
[2017-11-05] MEDS: ACCU-CHEK XX (01:30)
[2017-11-05] MEDS: DEXTROSE 50% 50 ML SYRINGE IV (06:23)
[2017-11-05 06:57] LABS: WHITE BLOOD COUNT 15.2 10^3/ul (4.8-10.8)
[2017-11-05 06:57] LABS: ABNORMAL IP MESSAGE 1; HEMATOCRIT 25.1 % (37.0-47.0); HEMOGLOBIN 8.2 g/dl (12.0-16.0); MEAN CORPUSCULAR HEMOGLOBIN 31.2 pg (29.0-33.0); MEAN CORPUSCULAR HGB CONC 32.7 g/dl (32.0-37.0); MEAN CORPUSCULAR VOLUME 95.4 fl (82.0-101.0); MEAN PLATELET VOLUME 10.8 fl (7.4-10.4); PLATELET COUNT 390 10^3/UL (140-415); RED BLOOD COUNT 2.63 10^6/ul (4.20-5.40); RED CELL DISTRIBUTION WIDTH 16.4 % (11.5-14.5)
[2017-11-05 06:59] LABS: POSITIVE DIFF @See below
[2017-11-05 07:00] LABS: ADD MAN DIFF? YES
[2017-11-05] MEDS ORDERED: DEXTROSE 50% 50 ML SYRINGE IV ×2 (07:00)
[2017-11-05] MEDS ORDERED: GLUCOSE GEL 15 GRAM TUBE PO (07:00)
[2017-11-05] MEDS ORDERED: GLUCAGON 1 MG INJ IM (07:00)
[2017-11-05] MEDS ORDERED: GLUCOSE GEL 15 GRAM TUBE BUCCAL (07:00)
[2017-11-05 07:30] LABS: ANION GAP 8 (8-16); BLOOD UREA NITROGEN 24 mg/dl (7-20); CALCIUM 8.9 mg/dl (8.4-10.2); CARBON DIOXIDE 28 mmol/L (21-31); CHLORIDE 102 mmol/L (97-110); CREATININE 0.83 mg/dl (0.44-1.00); MAGNESIUM 1.9 mg/dl (1.7-2.5); PHOSPHORUS 3.3 mg/dl (2.5-4.9); POTASSIUM 4.1 mmol/L (3.5-5.1); SODIUM 134 mmol/L (135-144)
[2017-11-05 07:34] LABS: GLUCOSE 409 mg/dl (70-220)
[2017-11-05] MEDS: INSULIN ASPART [NOVOLOG] 3 ML PEN SC ×7 (07:47→20:01)
[2017-11-05 08:01] LABS: ANISOCYTOSIS 1+ (0-0); BASOPHIL #M 0.3 10^3/ul (0.0-0.0); BASOPHILS % (M) 2 % (0-2); HYPOCHROMASIA 1+ (0-0); LYMPHOCYTES #M 7.1 10^3/ul (0.8-2.9); LYMPHOCYTES % (M) 47 % (15-51); MICROCYTOSIS 1+ (0-0); MONOCYTES % (M) 7 % (0-11); PLATELET ESTIMATE NORMAL; POLYCHROMASIA 1+ (0-0); SEGMENTED NEUTROPHILS (M) % 44 % (39-77)
[2017-11-05] MEDS: ALBUTEROL/IPRATROPIUM (NEB) 3 ML AMP HHN ×3 (08:18→19:46)
[2017-11-05] MEDS: DOCUSATE SODIUM 100 MG CAP PO ×2 (08:41→20:02)
[2017-11-05] MEDS: DIVALPROEX (EC) 250 MG TAB PO ×2 (08:41→20:02)
[2017-11-05] MEDS: ESCITALOPRAM 10 MG TAB PO (08:42)
[2017-11-05] MEDS: FAMOTIDINE 20 MG TAB PO (08:42)
[2017-11-05] MEDS: AMLODIPINE 10 MG TAB PO (08:43)
[2017-11-05] MEDS: CEFTRIAXONE 1 GM/50 ML (PMX) 50 ML IVPB (10:57)
[2017-11-05] MEDS: INSULIN GLARGINE [LANtus] 3 ML PEN SC (20:03)
[2017-11-06] MEDS: ACCU-CHEK XX (01:07)
[2017-11-06 06:22] LABS: ADD MAN DIFF? NO
[2017-11-06 06:41] LABS: BASOPHIL # 0.1 10^3/ul (0.0-0.1); BASOPHILS % 0.9 % (0.0-2.0); EOSINOPHILS # 0.2 10^3/ul (0.0-0.5); HEMATOCRIT 25.3 % (37.0-47.0); HEMOGLOBIN 8.4 g/dl (12.0-16.0); LYMPHOCYTES # 4.5 10^3/ul (0.8-2.9); MEAN CORPUSCULAR HEMOGLOBIN 31.2 pg (29.0-33.0); MEAN CORPUSCULAR HGB CONC 33.2 g/dl (32.0-37.0); MEAN CORPUSCULAR VOLUME 94.1 fl (82.0-101.0); MEAN PLATELET VOLUME 11.1 fl (7.4-10.4); MONOCYTE # 0.8 10^3/ul (0.3-0.9); MONOCYTES % 6.8 % (0.0-11.0); NEUTROPHIL # 5.6 10^3/ul (1.6-7.5); NEUTROPHILS % 49.9 % (39.0-77.0); PLATELET COUNT 324 10^3/UL (140-415); RED BLOOD COUNT 2.69 10^6/ul (4.20-5.40); RED CELL DISTRIBUTION WIDTH 16.1 % (11.5-14.5)
[2017-11-06 06:41] LABS: WHITE BLOOD COUNT 11.3 10^3/ul (4.8-10.8)
[2017-11-06 06:59] LABS: ANION GAP 12 (8-16); BLOOD UREA NITROGEN 31 mg/dl (7-20); CALCIUM 9.3 mg/dl (8.4-10.2); CARBON DIOXIDE 29 mmol/L (21-31); CHLORIDE 102 mmol/L (97-110); CREATININE 1.11 mg/dl (0.44-1.00); GLUCOSE 184 mg/dl (70-220); PHOSPHORUS 3.5 mg/dl (2.5-4.9); POTASSIUM 4.7 mmol/L (3.5-5.1); SODIUM 138 mmol/L (135-144)
[2017-11-06] MEDS: ALBUTEROL/IPRATROPIUM (NEB) 3 ML AMP HHN ×3 (08:00→20:15)
[2017-11-06] MEDS: DIVALPROEX (EC) 250 MG TAB PO ×2 (08:38→20:42)
[2017-11-06] MEDS: AMLODIPINE 10 MG TAB PO (08:38)
[2017-11-06] MEDS: ESCITALOPRAM 10 MG TAB PO (08:38)
[2017-11-06] MEDS: DOCUSATE SODIUM 100 MG CAP PO ×2 (08:38→20:41)
[2017-11-06] MEDS: FAMOTIDINE 20 MG TAB PO (08:38)
[2017-11-06] MEDS: INSULIN ASPART [NOVOLOG] 3 ML PEN SC ×7 (08:39→20:40)
[2017-11-06] MEDS: CEFTRIAXONE 1 GM/50 ML (PMX) 50 ML IVPB (12:13)
[2017-11-06] MEDS: INSULIN GLARGINE [LANtus] 3 ML PEN SC (20:41)
[2017-11-07] MEDS: ACCU-CHEK XX (01:21)
[2017-11-07] MEDS: ALBUTEROL/IPRATROPIUM (NEB) 3 ML AMP HHN ×3 (08:00→19:28)
[2017-11-07] MEDS: INSULIN ASPART [NOVOLOG] 3 ML PEN SC ×8 (08:15→21:54)
[2017-11-07] MEDS: DIVALPROEX (EC) 250 MG TAB PO ×2 (09:18→21:07)
[2017-11-07] MEDS: ESCITALOPRAM 10 MG TAB PO (09:18)
[2017-11-07] MEDS: DOCUSATE SODIUM 100 MG CAP PO ×2 (09:18→21:07)
[2017-11-07] MEDS: FAMOTIDINE 20 MG TAB PO (09:19)
[2017-11-07] MEDS: AMLODIPINE 10 MG TAB PO (09:20)
[2017-11-07] MEDS: CEFTRIAXONE 1 GM/50 ML (PMX) 50 ML IVPB (09:20)
[2017-11-07] MEDS: INSULIN GLARGINE [LANtus] 3 ML PEN SC (21:10)
[2017-11-08] MEDS: ACCU-CHEK XX ×2 (01:44→22:46)
[2017-11-08 06:18] LABS: ADD MAN DIFF? NO
[2017-11-08 06:44] LABS: WHITE BLOOD COUNT 9.1 10^3/ul (4.8-10.8)
[2017-11-08 06:44] LABS: BASOPHIL # 0.1 10^3/ul (0.0-0.1); BASOPHILS % 1.4 % (0.0-2.0); EOSINOPHILS # 0.2 10^3/ul (0.0-0.5); EOSINOPHILS % 2.1 % (0.0-7.0); HEMATOCRIT 25.6 % (37.0-47.0); HEMOGLOBIN 8.5 g/dl (12.0-16.0); LYMPHOCYTES # 3.1 10^3/ul (0.8-2.9); LYMPHOCYTES % 33.8 % (15.0-51.0); MEAN CORPUSCULAR HGB CONC 33.2 g/dl (32.0-37.0); MEAN CORPUSCULAR VOLUME 93.4 fl (82.0-101.0); MEAN PLATELET VOLUME 11.1 fl (7.4-10.4); MONOCYTE # 0.8 10^3/ul (0.3-0.9); MONOCYTES % 8.6 % (0.0-11.0); NEUTROPHIL # 4.9 10^3/ul (1.6-7.5); NEUTROPHILS % 53.6 % (39.0-77.0); PLATELET COUNT 285 10^3/UL (140-415); RED BLOOD COUNT 2.74 10^6/ul (4.20-5.40); RED CELL DISTRIBUTION WIDTH 15.9 % (11.5-14.5)
[2017-11-08 06:58] LABS: ANION GAP 10 (8-16); BLOOD UREA NITROGEN 31 mg/dl (7-20); CALCIUM 9.3 mg/dl (8.4-10.2); CARBON DIOXIDE 31 mmol/L (21-31); CHLORIDE 102 mmol/L (97-110); CREATININE 0.83 mg/dl (0.44-1.00); GLUCOSE 52 mg/dl (70-220); MAGNESIUM 2.1 mg/dl (1.7-2.5); POTASSIUM 4.1 mmol/L (3.5-5.1); SODIUM 139 mmol/L (135-144)
[2017-11-08] MEDS: INSULIN ASPART [NOVOLOG] 3 ML PEN SC ×7 (07:58→20:06)
[2017-11-08] MEDS: ESCITALOPRAM 10 MG TAB PO (08:18)
[2017-11-08] MEDS: FAMOTIDINE 20 MG TAB PO (08:18)
[2017-11-08] MEDS: DOCUSATE SODIUM 100 MG CAP PO ×2 (08:18→20:18)
[2017-11-08] MEDS: DIVALPROEX (EC) 250 MG TAB PO ×2 (08:18→20:18)
[2017-11-08] MEDS: AMLODIPINE 10 MG TAB PO (08:19)
[2017-11-08] MEDS: ALBUTEROL/IPRATROPIUM (NEB) 3 ML AMP HHN ×3 (08:26→22:55)
[2017-11-08] MEDS: CEFTRIAXONE 1 GM/50 ML (PMX) 50 ML IVPB (11:33)
[2017-11-08] MEDS: INSULIN GLARGINE [LANtus] 3 ML PEN SC (20:17)
[2017-11-09] MEDS: GLUCOSE GEL 15 GRAM TUBE PO (04:07)
[2017-11-09] MEDS: DEXTROSE 50% 50 ML SYRINGE IV (04:24)
[2017-11-09 05:03] LABS: GLUCOSE 137 mg/dl (70-220)
[2017-11-09] MEDS: ALBUTEROL/IPRATROPIUM (NEB) 3 ML AMP HHN ×3 (07:28→20:00)
[2017-11-09] MEDS: INSULIN ASPART [NOVOLOG] 3 ML PEN SC ×7 (07:59→20:54)
[2017-11-09] MEDS: ESCITALOPRAM 10 MG TAB PO (08:00)
[2017-11-09] MEDS: DOCUSATE SODIUM 100 MG CAP PO ×2 (08:00→20:50)
[2017-11-09] MEDS: DIVALPROEX (EC) 250 MG TAB PO ×2 (08:01→20:49)
[2017-11-09] MEDS: AMLODIPINE 10 MG TAB PO (08:01)
[2017-11-09] MEDS: FAMOTIDINE 20 MG TAB PO (08:01)
[2017-11-09] MEDS: CEFTRIAXONE 1 GM/50 ML (PMX) 50 ML IVPB (09:31)
[2017-11-09] MEDS: INSULIN GLARGINE [LANtus] 3 ML PEN SC (20:52)
[2017-11-10] MEDS: ACCU-CHEK XX (02:00)
[2017-11-10] MEDS: FAMOTIDINE 20 MG TAB PO (08:13)
[2017-11-10] MEDS: DOCUSATE SODIUM 100 MG CAP PO (08:13)
[2017-11-10] MEDS: ESCITALOPRAM 10 MG TAB PO (08:13)
[2017-11-10] MEDS: DIVALPROEX (EC) 250 MG TAB PO (08:13)
[2017-11-10] MEDS: AMLODIPINE 10 MG TAB PO (08:14)
[2017-11-10] MEDS: INSULIN ASPART [NOVOLOG] 3 ML PEN SC ×6 (08:18→17:37)
[2017-11-10] MEDS: ALBUTEROL/IPRATROPIUM (NEB) 3 ML AMP HHN ×2 (08:34→14:28)
[2017-11-10] MEDS: CEFTRIAXONE 1 GM/50 ML (PMX) 50 ML IVPB (11:15)
== END 2017-11-10 19:30 | DRG 871 ==
LOC: TEL 11:23 → E/R 08:13 → MS2 10-30 18:56
PROVIDERS: Family Medicine
DX: A41.9 Sepsis, unspecified organism (principal); E10.10 Type 1 diabetes mellitus with ketoacidosis without coma; N17.9 Acute kidney failure, unspecified; G92 Toxic encephalopathy; J18.9 Pneumonia, unspecified organism; E87.2 Acidosis; E87.0 Hyperosmolality and hypernatremia; K59.00 Constipation, unspecified; D72.829 Elevated white blood cell count, unspecified; E87.6 Hypokalemia; K57.90 Diverticulosis of intestine, part unspecified, without perforation or abscess without bleeding; F03.90 Unspecified dementia, unspecified severity, without behavioral disturbance, psychotic disturbance, mood disturbance, and anxiety; J44.9 Chronic obstructive pulmonary disease, unspecified; D64.9 Anemia, unspecified
CPT/HCPCS: 70450; 71045; 71260; 74176; 80048; 80069; 80076; 80202; 81001; 81003; 82043; 82947; 82962; 83036; 83605; 83735; 83935; 84100; 84155; 84300; 84439; 84443; 84681; 85025; 86592; 86803; 87086; 89190; 90686; 92526; 92610; 93005; 94640; 94664; 96372; 96374; 96375; 96376; 97163; 97167; 99291-25